=== PATIENT | female | born 1955 | race Caucasian/White ===

== ENCOUNTER → 2017-01-20 | Outpatient (CLI) | payer OTHER ==
[~2017-01-20] MED LIST: CETI10CA3 PO; FLUT1SPR5 EACH NARE; LIPI10TA PO; LOSA100T PO; METH2.5T PO; MONT10TA2 PO; PREM0.3T2 PO; PYRI1TAB5 PO; VITA1000 PO; VITA10004 PO
--- NOTE | 2017-01-20 11:06 | RADRPT ---
EXAM DATE/TIME: 01/20/2017 10:56 [place] COMPARISON: No previous studies available for comparison. INDICATIONS : Evaluate for pneumonia, pneumothorax or communicable disease. Pre op left knee surgery. MEDICAL HISTORY : Hypertension. SURGICAL HISTORY : None. ENCOUNTER: Initial ACUITY: 1 day PAIN SCORE: 0/10 LOCATION: Bilateral chest FINDINGS: PA and lateral views of the chest demonstrate the lungs to be symmetrically aerated without evidence of mass, infiltrate or effusion. The cardiomediastinal contours are unremarkable. Osseous structure s are intact. CONCLUSION: No acute disease. Dajuan Albarado MD on January 20, 2017 at 11:04 Board Certified Radiologist. This report was verified electronically.
[2017-01-20 11:23] LABS: INTERNATIONAL NORMALIZED RATIO 0.9 RATIO; PROTHROMBIN TIME - PATIENT 10.1 SEC (9.8-11.6)
[2017-01-20 11:26] LABS: BLOOD, URINE NEG (NEG); GLUCOSE,URINE NEG (NEG); KETONE, URINE NEG (NEG); NITRITE,URINE NEG (NEG); PH, URINE 6.5 (5.0-8.5); URINE COLOR LIGHT-YELLOW (YELLW/STRAW)
[2017-01-20 11:36] LABS: COMMENT (UR) CULT NOT INDICATED; CULTURE IF INDICATED CULT NOT INDICATED
[2017-01-20 11:46] LABS: BICARBONATE 26.7 MEQ/L (21.0-32.0); POTASSIUM 3.8 MEQ/L (3.5-5.1)
--- NOTE | 2017-01-21 23:58 | EKG ---
Date Performed: 01/20/2017 Time Performed: 10:21:51 PTAGE: 62 years EKG: Sinus rhythm SEPTAL MYOCARDIAL INFARCTION, PROBABLY OLD ABNORMAL ECG NO PREVIOUS TRACING DOCTOR: Nichole Julien Interpretating Date/Time 01/21/2017 23:57:29
== END ==
LOC: CPRE 09:53
PROVIDERS: ATTEND Orthopaedic Surgery
DX: Z01.812 Encounter for preprocedural laboratory examination (principal); Z01.810 Encounter for preprocedural cardiovascular examination; Z01.811 Encounter for preprocedural respiratory examination; S83.282A Other tear of lateral meniscus, current injury, left knee, initial encounter; R94.31 Abnormal electrocardiogram [ECG] [EKG]; X58.XXXA Exposure to other specified factors, initial encounter
CPT/HCPCS: 36415; 71020; 80048; 81001; 85610; 93005

== ENCOUNTER → 2017-02-06 | Day surgery (SDC) | payer OTHER ==
--- NOTE | 2017-02-02 12:08 | MH ---
cc: UNIQUE VILLATORO,PHILLIP DATE OF ADMISSION: 02/06/2017 ADMITTING DIAGNOSES 1. Lateral meniscus tear of the left knee. 2. Chondromalacia patellae left knee. 3. Effusion left knee. 4. Synovitis left knee. 5. Popliteal cyst left knee. 6. Pain of the left knee. HISTORY The patient is a 62-year-old white female who has experienced almost a six-month history of pain involving her left knee. She had noted the onset of her symptoms as a result of being at play with her granddaughter who she estimated to weigh approximately 30 pounds. She was sitting on the floor with her granddaughter standing on her legs at which time she became symptomatic with soreness about the anterior aspect of her left knee. Shortly thereafter she had traveled in [place] where she spends a week each month tending to the care of her elderly parents. During this interval of time she was negotiating stairs on a routine basis that tended to aggravate her knee symptoms. Upon her return home she was evaluated by her primary care physician Dr. Donovan. Initial x-ray studies were unremarkable for any acute bony abnormality. The patient was instructed to utilize Aleve for pain management. She was later seen by her treating dining service supervisor who treated her with cortisone injection with minimal benefit described. A subsequent MRI scan of her left knee identified a lateral meniscus tear. The patient had remained symptomatic with pain about her left knee for which she later underwent orthopedic evaluation with the undersigned physician in September of this year. At that time findings and treatment options were reviewed. The pros and cons of continuing with conservative management versus operative intervention that would involve arthroscopic surgery were outlined. Emphasis was made regarding the fact that the decision to proceed with surgery would be left entirely to the patient's discretion. At that time the patient was somewhat reluctant to plan for surgery indicating that she had travel plans pending. During this interval of time her mother unfortunately fell and broke her hip where she resides in the [place] and thus the patient required traveling out of town once again to render care. During this interval of time she continued to note pain about her left knee was seen by an orthopedic surgeon in the [place] area who treated her with a repeat cortisone injection that afforded the patient only temporary relief. Upon her return home she was seen in follow-up disposition and at that time indicated her ongoing symptoms were to such a degree that she was desirous of proceeding with a more definitive course of treatment. The involvement of arthroscopic surgery was outlined for which the patient indicated her full understanding and expressed her desire to proceed accordingly. In compliance with her wishes she is currently being admitted in order that the above procedure be completed. PAST MEDICAL HISTORY HOSPITALIZATIONS AND SURGERIES 1. Surgical stabilization of a right ankle fracture. 2. Excision of recurrent kidney stones by operative intervention. 3. She is also undergone previous colonoscopy. 4. Cystoscopy. MEDICAL ILLNESSES 1. Hypertension. 2. Elevated cholesterol. 3. Rheumatoid arthritis. CURRENT MEDICATIONS 1. Losartan 100 mg daily. 2. Atorvastatin 10 mg daily. 3. Prempro 0.3 mg daily. 4. Zyrtec daily. 5. Flonase daily. 6. Singulair daily. 7. Methotrexate 2.5 mg 3 tablets weekly. 8. Vitamin D 2500 micrograms daily. The patient denies any known drug allergies. REVIEW OF SYSTEMS HEENT: She wears glasses for reading purposes. Denies headache, seizure or syncope. No sinus congestion or epistaxis. Auditory acuity intact. No tinnitus. No bleeding gums or dysphagia. RESPIRATORY: Denies cough, shortness of breath, upper respiratory infection, pneumonia or tuberculosis. CARDIOVASCULAR: No angina or heart disease. She is medically managed for hypertension. GASTROINTESTINAL: Appetite good. Bowel movements regular. No hepatitis, gallbladder disease, ulcers or hemorrhoids. GENITOURINARY: No urinary tract infection. History of kidney stones. MUSCULOSKELETAL: History of stress fractures of the metatarsals bilaterally treated nonoperatively. PSYCHIATRIC: No psychiatric illness. Her remaining review of systems is unremarkable and noncontributory. FAMILY HISTORY 40 years. 62 years of age, in good health. One son indicated to be in good health. Family history is otherwise positive for hypertension, diabetes, heart disease, dementia and prostate cancer. 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 Denies active use of tobacco. Ethanol consumption in a limited social fashion and involving a couple glasses of wine weekly. PHYSICAL EXAMINATION VITAL SIGNS: Height is 5 feet, 7 inches, weight 161 pounds. GENERAL: An alert, oriented and responsive 62-year-old white female who sits quietly upon the examination table with no obvious distress. HEAD, EYES, EARS, NOSE, AND THROAT: Pupils are equally round and reactive to light. Extraocular movements full. Sclerae clear. External nares clear. External auditory canals clear. Dental intact. Mucous membranes pink and moist. Pharynx clear. NECK: Supple. Active range of motion with no appreciable pain. Carotid pulse palpable bilaterally. Trachea midline. Thyroid without enlargement. LUNGS: Clear to auscultation and percussion. No CVA tenderness. No discomfort throughout the dorsolumbar spine. HEART: Regular rhythm. No murmur or gallop. ABDOMEN: Soft, nontender. Bowel sounds present. PELVIC: Per primary care physician. EXTREMITIES: Left Knee - No significant swelling or effusion. Lateral joint line tenderness without palpable deformity. Apprehension and compression sign negative. Minimal limitation of mobility at the extreme of flexion without significant crepitation. No collateral ligamentous instability. Cuco test and drawer sign negative. Pivot shift and Ana sign minimally positive for lateral compartment pain. Straight-leg raising unremarkable at 80 degrees. Mild antalgic gait. NEUROLOGIC: Cranial nerves II-XII grossly intact. IMPRESSIONS 1. Lateral meniscus tear left knee. 2. Chondromalacia patellae left knee. 3. Effusion left knee. 4. Synovitis left knee. 5. Popliteal cyst left knee. 6. Pain left knee. PLAN Arthroscopic surgery and possible arthrotomy left knee. The nature of the planned surgical procedure, the potential complications and risks associated. The expectations of surgery and the consent form were thoroughly reviewed with the patient prior to admission to the hospital. Nettie has indicated her full understanding regarding all of the above and given consent to proceed with treatment as outlined. Medical evaluation and clearance for surgery will be completed by her primary care physician Dr. Sally Donovan. Unique Villatoro MD NBS/SSB /11:39 AM 11:53 AM
[~2017-02-06] VITALS: Ht 170.2 cm; Wt 74.0 kg
[~2017-02-06] MED LIST changes: +*ONDANSETRON 4 MG VIAL PERIprocedural Use ONLY ONE; +*morphine SULFATE 8 MG/ML PERIprocedure ONLY ONE; +CHLORHEXIDINE GLUCONATE 2 % 1 PACK (2 CLOTHS) TOPICAL PRN; +DICLOFENAC SODIUM 37.5 MG/ML VIAL IV PUSH ONE; +DO NOT ADM ANY ANTICOAGULANT DRUGS PRN; +FAMOTIDINE 20 MG/2 ML VIAL ONE; +INSULIN HUMAN REGULAR 1,000 UNITS/10 ML VIAL SQ PRN; +KETOROLAC TROMETHAMINE 60 MG/2 ML (IM) VIAL IM ONE; +LACTATED RINGER'S 1000 ML IV PRN; +LIDOCAINE HCL 2% PF SOLN 10 ML VIAL INFIL ONE; +METOPROLOL TARTRATE 25 MG TAB PO PRN; +MIDAZOLAM HCL 2 MG/2 ML VIAL ONE; +ONDANSETRON HCL 4 MG/2 ML VIAL IV PUSH ONE; +POVIDONE IODINE 5% (ANTISEPSIS KIT) 4 APPLICATIONS EACH NARE PRN; +POVIDONE IODINE 7.5% SCRUB 118 ML BOTTLE TOPICAL SCH; +PROPOFOL 200 MG/20 ML AMP IV ONE; +SODIUM CHLORID 0.9% 500 ML IV PRN; +TRIAMCINOLONE ACETONIDE 40 MG/ML VIAL I-ARTICULR ONE; +ceFAZolin 2 GM PREMIX 50 ML IV SCH; +fentaNYL CITRATE 250 MCG/5 ML AMP ONE; +oxyCODONE/ACETAMINOPHEN 5 MG/325 MG TAB ONE
[2017-02-06 05:46] VITALS: BP 130/71; PULSE 78; RESP 16; TEMP 97.8; O2SAT 98
[2017-02-06 09:48] VITALS: BP 128/78; PULSE 69; RESP 20; TEMP 96.7; O2SAT 98
--- NOTE | 2017-02-06 11:00 | MP ---
cc: UNIQUE VILLATORO M.D. DATE OF SURGERY 02/06/2017 PREOPERATIVE DIAGNOSIS Lateral meniscus tear of the left knee, chondromalacia patellae left knee, effusion left knee, synovitis left knee, popliteal cyst left knee and pain of the left knee. POSTOPERATIVE DIAGNOSIS Lateral meniscus tear of the left knee, chondromalacia patellae left knee, effusion left knee, synovitis left knee, popliteal cyst left knee and pain of the left knee. PROCEDURE Partial lateral meniscectomy left knee with chondroplasty of the patellofemoral joint. SURGEON Unique Villatoro MD ANESTHESIA General by LMA FORMAT Following induction of satisfactory general anesthesia by LMA insertion as completed per the Department of Anesthesia, examination of the left knee revealed a satisfactory range of motion with no appreciable ligamentous instability. The extremity proper was positioned into the insurance account assistant knee hudson, prepped with Betadine solution, and draped into a sterile field in the routine manner. Prior to initiation of the actual procedure, the standard time-out protocol was completed. All parameters were appropriately addressed and confirmed by operating room personnel. Arthroscopic instrumentation was introduced through a stab wound utilizing cannula with sharp and blunt trocar. The inflow irrigation by way of a medial suprapatellar portal, the arthroscope through a medial parapatellar portal, a probe through a lateral parapatellar portal. Examination of the suprapatellar pouch revealed mild reactive synovitis, moderate articular irregularity along the surface of the patella was appreciated consistent with chondromalacia. Within the lateral compartment, a degenerative tear involving the body and posterior horn of the lateral meniscus was noted. There was minimal articular irregularity along the adjacent surface of the femoral condyle. Proliferative synovium extended into the intercondylar region. The anterior cruciate ligament was identified and noted to be intact. Examination of the medial compartment was essentially unremarkable without evidence of internal derangement. Articular surfaces were uniform throughout. Attention was redirected to the medial compartment. Utilizing a 3.8 mm full radius resector, a partial medial meniscectomy was accomplished, as well as limited debridement throughout the medial compartment. The shaver was thereafter oriented into the suprapatellar region where a chondroplasty of the patellofemoral joint was accomplished. Upon completion of same, the joint space was thoroughly lavaged and suctioned dry. An intra-articular Kenalog lidocaine injection was completed. Portal sites were reapproximated with Steri-Strips over which Xeroform gauze and a bulky dry sterile dressing were placed. Anesthesia was discontinued and the patient thus transferred to a hospital stretcher and returned to the recovery room in satisfactory condition having tolerated her operative procedure well. Estimated blood loss was less than 5 cc. MD TARIK Russell/CLAU /8:34 AM /10:56 AM
== END | disposition home or self-care (01) ==
LOC: HSDC 05:04
PROVIDERS: ATTEND Orthopaedic Surgery
DX: S83.282A Other tear of lateral meniscus, current injury, left knee, initial encounter (principal); M22.42 Chondromalacia patellae, left knee; M25.462 Effusion, left knee; M71.22 Synovial cyst of popliteal space [Baker], left knee; M65.9 Synovitis and tenosynovitis, unspecified; X50.0XXA Overexertion from strenuous movement or load, initial encounter; Y93.89 Activity, other specified
CPT/HCPCS: 01400; 29881; J0690; J1130; J1885; J2250; J2270; J2405; J3010; J3301; J7120